=== PATIENT | male | born 1935 | race Caucasian/White ===

== ENCOUNTER 2020-09-13 08:46 | Emergency (ER) | payer MEDICARE, BC ==
--- NOTE | 2020-09-13 09:07 | EDM.PDOC ---
ED HPI GENERAL MEDICAL PROBLEM - General Chief Complaint: Chest Pain Stated Complaint: CHEST PAIN Time Seen by Provider: 09/13/20 09:07 Source of Information: Reports: Patient History Limitations: Reports: No Limitations - History of Present Illness INITIAL COMMENTS - FREE TEXT/NARRATIVE: 85-year-old male presents to the ED complaining of central chest pain that radiates through to his mid back. Described as a heaviness or pressure. It started around 0630 hrs. this morning while he was up making coffee. Denies any associated cough sputum production and pain is not relieved by burping or belching. He did take all of his normal meds this morning. About an hour ago he took a nitroglycerin tablet and one baby aspirin. He feels the nitro did relieve his central chest pain from a 4 down to a 1. Patient has a known history of coronary disease requiring 2 stent placements about 2 years ago. Denies any recent changes to his medications. No history of COVID-19 illness. No associated nausea vomiting or dizziness. Patient is not having any chest pain on exertion to suggest unstable angina development. Patients list suggest that he is on Plavix 75 mg daily. Onset: Today, Sudden Onset Date: 09/13/20 Onset Time: 06:30 Duration: Hour(s):, Improving Location: Reports: Chest (Central chest discomfort rating through to the mid back.) Quality: Reports: Ache, Pressure Severity: Moderate (Was about a 4 5 at home down to the 1 out of 10 now after taking nitroglycerin tablet at home before coming to the ED.) Improves with: Reports: Rest, Other (Since taking nitro tablet at home) Worsens with: Reports: None Context: Denies: Activity, Exercise, Lifting, Sick Contact, Trauma, Other Associated Symptoms: Reports: Chest Pain. Denies: No Other Symptoms, Confusion, Cough, cough w sputum, Diaphoresis, Fever/Chills (History of present illness), Headaches, Loss of Appetite, Malaise, Nausea/Vomiting, Rash, Seizure, Shortness of Breath, Syncope Treatments TARPER: Reports: Other (see below) (Patient took a baby aspirin 81 mg and a nitro tab 0.4 mg sublingual before coming to the hospital this morning.) Chest Pain Score (Numeric/FACES): 4 - Related Data Allergies Allergy/AdvReac Type Severity Reaction Status Date / Time atorvastatin AdvReac Muscle Verified 09/13/20 09:00 Aches hydrocodone AdvReac Hallucinati Verified 09/13/20 09:00 ons pantoprazole AdvReac Diarrhea Verified 09/13/20 09:00 pravastatin AdvReac Muscle Verified 09/13/20 09:00 Aches rosuvastatin [From Crestor] AdvReac Muscle Verified 09/13/20 09:00 Aches Home Meds: Home Meds Aspirin [Halfprin] 81 mg PO DAILY 07/09/16 [History] Losartan [Cozaar] 100 mg PO DAILY 07/09/16 [History] amLODIPine [Norvasc] 5 mg PO BEDTIME 07/09/16 [History] metFORMIN [Glucophage] 1,000 mg PO BIDMEALS 07/09/16 [History] Metoprolol Succinate [Toprol XL] 25 mg PO DAILY 11/01/18 [History] Nitroglycerin 0.4 mg SL ASDIRECTED PRN 11/01/18 [History] Rosuvastatin [Crestor] 5 mg PO MOWEFR 11/01/18 [History] Empagliflozin [Jardiance] 10 mg PO DAILY 09/13/20 [History] Famotidine 20 mg PO BEDTIME 09/13/20 [History] Oxybutynin 10 mg PO DAILY 09/13/20 [History] Tamsulosin [Flomax] 0.4 mg PO DAILY 09/13/20 [History] Past Medical History Cardiovascular History: Reports: High Cholesterol, Hypertension, Stents (He had [address] Bach at [facility] in [place] about 2 years ago) Gastrointestinal History: Reports: GERD, Other (See Below) (Has had previous cholecystectomy) Genitourinary History: Reports: BPH Musculoskeletal History: Reports: Arthritis, Back Pain, Chronic (Bilateral shoulder pain. Has had right rotator cuff repair), Other (See Below) Endocrine/Metabolic History: Reports: Diabetes, Type II (Controlled by diet and Metformin 500 mg by mouth twice daily) Other Immunologic History: Patient had his first Covid shot about 2 weeks ago and had no adverse effects. - Past Surgical History GI Surgical History: Reports: Cholecystectomy Neurological Surgical History: Reports: Other (See Below) (Patient has had bilateral total shoulder prostheses.) Social & Family History - Tobacco Use Tobacco Use Status *Q: Former Tobacco User (Quit 50 years ago.) - Living Situation & Occupation Living situation: Reports: Occupation: Retired ED ROS GENERAL - Review of Systems Review Of Systems: See Below Constitutional: Denies: Fever, Chills, Malaise, Weakness, Fatigue, Decreased Appetite, Weight Loss HEENT: Reports: Glasses Respiratory: Reports: Shortness of Breath. Denies: Wheezing, Pleuritic Chest Pain, Cough, Sputum, Hemoptysis Cardiovascular: Reports: Chest Pain, Blood Pressure Problem (Central chest pressure discomfort), Dyspnea on Exertion (Sometimes), Edema (Mild lower extremities around the ankles at times.), Palpitations (Sometimes). Denies: Claudication, Lightheadedness, Orthopnea Endocrine: Reports: Fatigue GI/Abdominal: Reports: Constipation (Rare constipation problems bowels have been working usually every other day no blood) : Reports: Frequency, Other (Nocturia x2. Known BPH.) Musculoskeletal: Reports: Neck Pain, Shoulder Pain, Back Pain, Joint Pain (Left shoulder pain due to rotator cuff disease mild pain knees and hips at times) Skin: Reports: No Symptoms Neurological: Reports: No Symptoms Psychiatric: Reports: No Symptoms Hematologic/Lymphatic: Reports: No Symptoms Immunologic: Reports: No Symptoms ED EXAM, GENERAL - Physical Exam Exam: See Below Exam Limited By: No Limitations General Appearance: Alert, WD/WN, No Apparent Distress, Other (Temperature is 36.6 degrees with a heart rate of 65 and sinus respiratory rate was 16 O2 sats 95% room air BP 138/87) Eye Exam: Bilateral Eye: Normal Inspection (No scleral icterus or blepharal pallor.), PERRL Throat/Mouth: Normal Inspection, Normal Lips, Normal Oropharynx, Other Head: Atraumatic, Normocephalic (Tongue is moist.) Neck: Normal Inspection, Supple, Non-Tender, Limited Range of Motion (Loss of 5 degrees lateral flexion and). No: Carotid Bruit, Lymphadenopathy (L) ( rotation bilaterally.), Lymphadenopathy (R) Respiratory/Chest: No Respiratory Distress, Lungs Clear, Normal Breath Sounds, No Accessory Muscle Use Cardiovascular: Normal Peripheral Pulses, Regular Rate, Rhythm, No Edema, No Gallop, No Murmur, No Rub Peripheral Pulses: 2+: Carotid (L), Carotid (R), Posterior Tibial (L), Posterior Tibial (R), Dorsalis Pedis (L), Dorsalis Pedis (R) GI/Abdominal: Soft, Non-Tender, No Organomegaly ( not tympanic to percussion), Distended (All sounds are very active in all 4 quadrants mildly distended), Abnormal Bowel Sounds, Other (Gallbladder is absent) (Male) Exam: No Hernia Back Exam: Normal Inspection, Full Range of Motion. No: CVA Tenderness (L), CVA Tenderness (R) Extremities: Normal Inspection, Normal Range of Motion, Non-Tender, No Pedal Edema, Other (No clinical evidence of DVT in either lower extremity.) Neurological: Alert, Oriented, CN II-XII Intact, Normal Cognition Psychiatric: Normal Affect, Normal Mood Skin Exam: Dry, Intact, Normal Color, No Rash #1 Interpretation EKG Date: 09/13/20 Time: 08:55 Rhythm: NSR Rate (Beats/Min): 60 [place]: LAD-Left [place] Deviation (And is 16 degrees) P-Wave: Present QRS: Other (Early R wave transition consider septal hypertrophy pattern decreased voltage both limb and precordial leads) ST-T: Other (T wave flattening appreciated in leads aVL and lead III also appreciated in leads V1 V2 by themselves are nonspecific.) QT: Normal EKG Interpretation Comments: Abnormal ECG with no evidence of acute ischemia Course - Vital Signs Last Recorded V/S: Last Vital Signs Temp 36.6 C 09/13/20 08:57 Pulse 67 09/13/20 10:00 Resp 16 09/13/20 10:00 BP 119/74 09/13/20 10:00 Pulse Ox 93 L 09/13/20 10:00 - Orders/Labs/Meds Orders: Active Orders 24 hr Category Date Time Status EKG 12 Lead [EKG Documentation Completion] [RC] STAT Care 09/13/20 09:20 Active URINALYSIS W/MICROSCOPIC [UA W/MICROSCOPIC] [URIN] Stat Lab 09/13/20 09:16 Ordered Nitroglycerin/D5W [Nitroglycerin 25 MG/D5W 250 ML] Med 09/13/20 09:15 Active 25 mg in 250 ml IV TITRATE Sodium Chloride 0.9% [Normal Saline] 1,000 ml Med 09/13/20 09:15 Active IV ASDIRECTED Medication Orders Sodium Chloride (Normal Saline) 1,000 mls @ 100 mls/hr IV ASDIRECTED NELLIE Last Admin: 09/13/20 09:30 Dose: 100 mls/hr Documented by: NIKOLE Nitroglycerin/Dextrose (Nitroglycerin 25 Mg/D5w 250 Ml) 25 mg in 250 mls @ 3 mls/hr IV TITRATE NELLIE; Protocol Last Admin: 09/13/20 09:30 Dose: 5 mcg/min, 3 mls/hr Documented by: NIKOLE Labs: Laboratory Tests 09/13/20 09/13/20 09/13/20 Range/Units 09:22 09:22 09:22 WBC 5.45 (4.23-9.07) K/mm3 RBC 4.62 L (4.63-6.08) M/mm3 Hgb 14.3 (13.7-17.5) gm/dl Hct 42.7 (40.1-51.0) % MCV 92.4 H (79.0-92.2) fl MCH 31.0 (25.7-32.2) pg MCHC 33.5 (32.2-35.5) g/dl RDW Std Deviation 44.8 H (35.1-43.9) fL Plt Count 189 (163-337) K/mm3 MPV 9.7 (9.4-12.3) fl Neut % (Auto) 57.8 (34.0-67.9) % Lymph % (Auto) 27.0 (21.8-53.1) % Real % (Auto) 11.0 (5.3-12.2) % Eos % (Auto) 2.9 (0.8-7.0) Baso % (Auto) 0.7 (0.1-1.2) % Neut # (Auto) 3.15 (1.78-5.38) K/mm3 Lymph # (Auto) 1.47 (1.32-3.57) K/mm3 Real # (Auto) 0.60 (0.30-0.82) K/mm3 Eos # (Auto) 0.16 (0.04-0.54) K/mm3 Baso # (Auto) 0.04 (0.01-0.08) K/mm3 PT 11.0 (9.7-12.0) SECONDS INR 1.03 APTT (21.7-31.4) SECONDS D-Dimer, Quantitative (0.19-0.50) mg/L Sodium 144 (136-145) mEq/L Potassium 4.2 (3.5-5.1) mEq/L Chloride 107 (98-107) mEq/L Carbon Dioxide 25 (21-32) mEq/L Anion Gap 16.2 H (5-15) BUN 18 (7-18) mg/dL Creatinine 1.3 (0.7-1.3) mg/dL Est Cr Clr Drug Dosing 44.25 mL/min Estimated GFR (MDRD) 52 (>60) mL/min BUN/Creatinine Ratio 13.8 L (14-18) Glucose 175 H (83-115) mg/dL Calcium 9.0 (8.5-10.1) mg/dL Magnesium 1.5 L (1.8-2.4) mg/dl Total Bilirubin 0.5 (0.2-1.0) mg/dL AST 15 (15-37) U/L ALT 25 (16-63) U/L Alkaline Phosphatase 80 (46-116) U/L CK-MB (CK-2) 0.5 (0-3.6) ng/ml Troponin I 0.027 (0.00-0.056) ng/mL C-Reactive Protein <0.2 (<1.0) mg/dL NT-Pro-B Natriuret Pep (0-450) pg/mL Total Protein 7.1 (6.4-8.2) g/dl Albumin 3.7 (3.4-5.0) g/dl Globulin 3.4 gm/dL Albumin/Globulin Ratio 1.1 (1-2) 09/13/20 09/13/20 09/13/20 Range/Units 09:22 09:22 11:33 WBC (4.23-9.07) K/mm3 RBC (4.63-6.08) M/mm3 Hgb (13.7-17.5) gm/dl Hct (40.1-51.0) % MCV (79.0-92.2) fl MCH (25.7-32.2) pg MCHC (32.2-35.5) g/dl RDW Std Deviation (35.1-43.9) fL Plt Count (163-337) K/mm3 MPV (9.4-12.3) fl Neut % (Auto) (34.0-67.9) % Lymph % (Auto) (21.8-53.1) % Real % (Auto) (5.3-12.2) % Eos % (Auto) (0.8-7.0) Baso % (Auto) (0.1-1.2) % Neut # (Auto) (1.78-5.38) K/mm3 Lymph # (Auto) (1.32-3.57) K/mm3 Real # (Auto) (0.30-0.82) K/mm3 Eos # (Auto) (0.04-0.54) K/mm3 Baso # (Auto) (0.01-0.08) K/mm3 PT (9.7-12.0) SECONDS INR APTT 25.9 (21.7-31.4) SECONDS D-Dimer, Quantitative 0.73 H (0.19-0.50) mg/L Sodium (136-145) mEq/L Potassium (3.5-5.1) mEq/L Chloride (98-107) mEq/L Carbon Dioxide (21-32) mEq/L Anion Gap (5-15) BUN (7-18) mg/dL Creatinine (0.7-1.3) mg/dL Est Cr Clr Drug Dosing mL/min Estimated GFR (MDRD) (>60) mL/min BUN/Creatinine Ratio (14-18) Glucose (83-115) mg/dL Calcium (8.5-10.1) mg/dL Magnesium (1.8-2.4) mg/dl Total Bilirubin (0.2-1.0) mg/dL AST (15-37) U/L ALT (16-63) U/L Alkaline Phosphatase (46-116) U/L CK-MB (CK-2) < 0.5 (0-3.6) ng/ml Troponin I 0.023 (0.00-0.056) ng/mL C-Reactive Protein (<1.0) mg/dL NT-Pro-B Natriuret Pep 99 (0-450) pg/mL Total Protein (6.4-8.2) g/dl Albumin (3.4-5.0) g/dl Globulin gm/dL Albumin/Globulin Ratio (1-2) Meds: Medications Generic Name Dose Route Start Last Admin Trade Name Freq PRN Reason Stop Dose Admin Sodium Chloride 1,000 mls @ 100 mls/hr 09/13/20 09:15 09/13/20 09:30 Normal Saline IV 100 mls/hr ASDIRECTED NELLIE Administration Nitroglycerin/Dextrose 25 mg in 250 mls @ 3 mls/hr 09/13/20 09:15 09/13/20 09:30 Nitroglycerin 25 Mg/D5w 250 Ml IV 5 mcg/min TITRATE NELLIE 3 mls/hr Administration Protocol 5 MCG/MIN Discontinued Medications Generic Name Dose Route Start Last Admin Trade Name Sowmya PRN Reason Stop Dose Admin Aspirin 324 mg 09/13/20 09:14 09/13/20 09:30 Aspirin PO 09/13/20 09:15 324 mg ONETIME ONE Administration - Radiology Interpretation Free Text/Narrative:: 85-year-old male with known coronary disease presents to the ED after developing central chest pressure discomfort that radiates straight through to his mid back about 0630 hrs. this morning while he was up making coffee. This pressure discomfort persisted in spite of eating breakfast and taking his normal medications. Shortly before coming to the hospital at 0900 hrs. he took a nitroglycerin tablet 0.4 mg sublingual and a baby aspirin at home. He feels that this did relieve his central chest pain substantially pain went from a 4 5 down to a 1 at the time of my exam. Patient patient had 2 stents [place] [address] 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 He has had no problems since having stent placement but remains on Plavix 75 mg daily. No recent changes to any of his medications. ECG reveals sinus rhythm at 61/min with decreased voltage in both limb and precordial leads. There is suggestion of early R wave transition at V3 V4 suspicious for right septal hypertrophy. There is T wave flattening in leads I and aVL clinically no evidence of any ischemic changes in the inferior wall or anterior lateral wall. Plan he will will receive 3 further aspirin tablets of 81 mg strength to complete 324 mg total. Started on nitroglycerin drip at 5 mcg/min. He will have a cardiac work-up including chest x-ray. Of note patient does have a strong history of GERD but states his heart burn has been well controlled with current medicines. - Re-Assessments/Exams Free Text/Narrative Re-Assessment/Exam: 09/13/20 09:49 portable chest x-ray reveals mildly hyperinflated lung mccann. Cardiac silhouette is normal. Slight prominence of the right pulmonary artery appreciated. Very mild diffuse vascular congestion pattern. Hematology reveals a white count of 5.45 the auto differential shows 58% neutrophils. Hemoglobin is 14.3 with hematocrit of 42.7 MCV is slightly elevated 92.4. Platelet count normal at 189,000. Upon review the patient states his chest pain is pretty well gone. He provides further history of recent fall 3 weeks ago where he landed flat on his chest with his cell phone in his right upper pocket. States he broke a rib and significantly contused muscles within his right medial forearm. Bruising has dissipated. He indicates now that he is no longer on Plavix it was stopped last spring. He does still take a baby aspirin daily. Of note I do not appreciate any healing rib fractures on today's chest x-ray. He has a small pulmonary nodule right upper lobe measuring 2.2 mm. 09/13/20 10:15 PT is 11.0 with an INR of 1.03 PTT is 25.9. D-Dimer 730 elevated above lab parameters but considered normal for his age. BNP is 99 09/13/20 10:48 Chemistry reveals a sodium of 144 potassium of 4.2. Chloride 107 with a bicarb of 25 anion gap is mildly elevated at 16.2. BUN is 18 with a creatinine of 1.3 GFR is 52. Glucose 175. Calcium is 9.0 magnesium slightly low at 1.5 liver function otherwise normal CK-MB fraction is 0.5 troponin I is 0.027. C-reactive protein is less than 0.2 BNP is 99 total protein is 7.1 albumin fraction 3.7 09/13/20 10:55 initial cardiac markers returned in the normal range. I will h ave them repeated at 1115 hrs. to make sure we did not miss any evolving myocardial infarction. At present the patient has no chest pain. 09/13/20 12:27 Repeat cardiac enzymes reveal no change in the CK-MB fraction at less than 0.5 and troponin level has creased from 0.027-0.023. Patient and reassured about the chest pain having no relationship to her heart. He knows that he has a hiatal hernia and I suspect this is the cause. At present he has absolutely no pain. He will be walked in the hallway before discharge home to make sure that he has no further chest pain development. 09/13/20 13:00 patient was walked in the hallway and had no further chest pain or issues. He will therefore be discharged to home with follow-up with his personal care physician if any other problems occur. I did not prescribe any medication for hiatal hernia such as Bentyl etc. Departure - Departure Time of Disposition: 12:59 Disposition: Home, Self-Care 01 Reason for Transfer *Q: Other Condition: Good Clinical Impression: Non-cardiac chest pain, Hiatal hernia Instructions: Nonspecific Chest Pain, Adult, [id number] Referrals: Everardo Strong MD [Primary Care Provider] - Forms: ED Department Discharge Additional Instructions: Evaluation in the emergency room this morning in regards to development of central chest pressure discomfort radiating through to your back at about 0630 hrs. this morning. History of coronary artery disease having 2 stents placed approximately 2 years ago. ECG did not show any evidence of heart attack. Chest x-ray was also within normal limits. Lab tests revealed no evidence of blood clots in the lungs or any evidence of infection. Initial heart markers for heart attack came back in the normal range. They were repeated 2 hours later and they remain in the normal range and in fact have gone down a little bit compared to the first ones. Therefore I do not feel that chest pain today was heart related. I suspect it was more likely related to hiatal hernia pain due to the stomach sneaking up into the lower chest while you were sleeping last night. Suggest sitting or standing for good portion of the next 6 hours to help bring the stomach back down into the abdomen where it belongs. Since the pain is gone the stomach may well have moved back down into the abdomen where it belongs as well. Continue all current medications as previously prescribed. Follow-up with personal care physician if further problems occur. Sepsis Event Note (ED) - Evaluation Sepsis Screening Result: No Definite Risk - Focused Exam Vital Signs: Vital Signs Temp Pulse Resp BP Pulse Ox 09/13/20 10:00 67 16 119/74 93 L 09/13/20 08:57 36.6 C 65 16 138/87 95 - My Orders Last 24 Hours: My Active Orders 09/13/20 09:15 Nitroglycerin/D5W [Nitroglycerin 25 MG/D5W 250 ML] 25 mg in 250 ml IV TITRATE Sodium Chloride 0.9% [Normal Saline] 1,000 ml IV ASDIRECTED 09/13/20 09:16 URINALYSIS W/MICROSCOPIC [UA W/MICROSCOPIC] [URIN] Stat 09/13/20 09:20 EKG 12 Lead [EKG Documentation Completion] [RC] STAT - Assessment/Plan Last 24 Hours: My Active Orders 09/13/20 09:15 Nitroglycerin/D5W [Nitroglycerin 25 MG/D5W 250 ML] 25 mg in 250 ml IV TITRATE Sodium Chloride 0.9% [Normal Saline] 1,000 ml IV ASDIRECTED 09/13/20 09:16 URINALYSIS W/MICROSCOPIC [UA W/MICROSCOPIC] [URIN] Stat 09/13/20 09:20 EKG 12 Lead [EKG Documentation Completion] [RC] STAT
[2020-09-13] MEDS ORDERED: Aspirin 81 MG Tab.Chew PO ONE (09:14)
[2020-09-13] MEDS ORDERED: Nitroglycerin/D5W 25 MG/250 ML BOTTLE IV SCH (09:15)
[2020-09-13] MEDS ORDERED: Sodium Chloride 0.9% 1,000 ML IV SCH (09:15)
--- NOTE | 2020-09-13 10:19 | CR ---
Chest: Portable view of the chest was obtained. Comparison: No prior chest imaging is available. Heart size and mediastinum are within normal limits for portable technique. Lungs are clear with no acute parenchymal change. Minimal degenerative change is partially seen within the spine. Bilateral shoulder prostheses are noted. Impression: 1. Nothing acute is appreciated on portable chest x-ray. Diagnostic code #2
[2020-09-13 10:37] VITALS: BP 119/74; PULSE 67
== END 2020-09-13 13:15 | disposition home or self-care (01) ==
LOC: JD.ED 08:46
DX: K44.9 Diaphragmatic hernia without obstruction or gangrene (principal); I10 Essential (primary) hypertension; E78.00 Pure hypercholesterolemia, unspecified; K21.9 Gastro-esophageal reflux disease without esophagitis; E11.9 Type 2 diabetes mellitus without complications; Z87.891 Personal history of nicotine dependence; Z79.82 Long term (current) use of aspirin; Z79.84 Long term (current) use of oral hypoglycemic drugs; Z79.899 Other long term (current) drug therapy; R06.02 Shortness of breath
CPT/HCPCS: 36415; 71045; 80053; 82553; 83735; 83880; 84484; 85025; 85379; 85610; 85730; 86140; 93005; 96365; 96366; 99285; A9270; J3490; J7030; 93010; 99284

== ENCOUNTER 2021-08-30 11:16 | Emergency (ER) | payer MEDICARE, BC ==
[2021-08-30 11:29] VITALS: BP 139/89; PULSE 75
[2021-08-30] MEDS ORDERED: Sodium Chloride 0.9% 1,000 ML IV SCH (12:00)
[2021-08-30 13:49] LABS: CORONAVIRUS COVID-19 NAA NEGATIVE (NEGATIVE)
== END 2021-08-30 15:30 ==
LOC: JD.ED 11:16
DX: K92.2 Gastrointestinal hemorrhage, unspecified (principal); I25.10 Atherosclerotic heart disease of native coronary artery without angina pectoris; E78.00 Pure hypercholesterolemia, unspecified; I10 Essential (primary) hypertension; K21.9 Gastro-esophageal reflux disease without esophagitis; M19.90 Unspecified osteoarthritis, unspecified site; E11.9 Type 2 diabetes mellitus without complications; Z88.8 Allergy status to other drugs, medicaments and biological substances; Z88.5 Allergy status to narcotic agent; Z79.82 Long term (current) use of aspirin; Z79.84 Long term (current) use of oral hypoglycemic drugs; Z79.899 Other long term (current) drug therapy; Z20.822 Contact with and (suspected) exposure to COVID-19
CPT/HCPCS: 0240U; 36415; 80053; 81001; 83735; 83880; 84484; 85014; 85018; 85025; 85610; 85730; 86140; 86850; 86900; 86901; 93005; 99285; J7030